=== PATIENT | female | born 1960 ===

== ENCOUNTER 2020-04-23 09:15 | Inpatient (IN) | payer OTHER ==
[~2020-04-23] VITALS: Ht 167.6 cm; Wt 102.1 kg
[2020-04-23] MEDS ORDERED: HUMIRA PEN40 MG/0.2 (11:19)
[2020-04-23] MEDS ORDERED: METFORMIN HCL500 M2 PO (11:19)
[2020-04-23] MEDS ORDERED: COZAAR50 MG PO (11:20)
[2020-04-23] MEDS ORDERED: SYNTHROID50 MCG PO (11:20)
[2020-04-23] MEDS ORDERED: GABAPENTIN300 M2 PO (11:20)
[2020-04-23] MEDS ORDERED: NABUMETONE750 MG PO (11:22)
[2020-04-23] MEDS ORDERED: XALATAN OP (11:24)
[2020-04-30] MEDS ORDERED: LATANOPROST2.5 ML (07:52)
[2020-05-03] MEDS ORDERED: XARELTO10 MG PO (07:42)
[2020-05-03] MEDS ORDERED: INTEGRA PLUS C1 EACH PO (07:42)
[2020-05-03] MEDS ORDERED: OXYC1TAB9 PO (07:42)
== END 2020-05-03 13:44 | DRG 470 ==
LOC: O/R 04-30 04:50 → SURH 04-30 04:50
PROVIDERS: ADMIT Orthopaedic Surgery Sports Medicine; ATTEND Orthopaedic Surgery Sports Medicine
PROC: 0SRC0J9 Replacement of Right Knee Joint with Synthetic Substitute, Cemented, Open Approach (ICD-10-PCS; principal; 2020-04-30 11:30)
DX: M17.11 Unilateral primary osteoarthritis, right knee (principal); Z20.828 Contact with and (suspected) exposure to other viral communicable diseases

== ENCOUNTER 2020-10-02 11:15 | Inpatient (IN) | payer OTHER ==
[~2020-10-02] VITALS: Ht 167.6 cm; Wt 102.1 kg
[~2020-10-02 11:15] MED LIST: COZAAR50 MG PO; GABAPENTIN300 M2 PO; HUMIRA PEN40 MG/0.2; INTEGRA PLUS C1 EACH PO; LATANOPROST2.5 ML; METFORMIN HCL500 M2 PO; NABUMETONE750 MG PO; OXYC1TAB9 PO; SYNTHROID50 MCG PO; XALATAN OP; XARELTO10 MG PO
[2020-10-02] MEDS ORDERED: EMBREL (16:35)
[2020-10-02] MEDS ORDERED: SULINDAC200 MG PO (16:36)
[2020-10-08] MEDS ORDERED: ENBREL50 MG/1 M1 SUBCUTANEO (14:25)
[2020-10-10] MEDS ORDERED: BACTRIM DS TAB1 EACH PO (06:26)
[2020-10-10] MEDS ORDERED: OXYC1TAB9 PO (06:26)
[2020-10-10] MEDS ORDERED: INTEGRA PLUS C1 EACH PO (06:26)
[2020-10-10] MEDS ORDERED: XARELTO10 MG PO (06:26)
== END 2020-10-10 15:02 | DRG 470 ==
LOC: EDSTATUS 11:15 → ADM 11:15 → SURH 10-08 11:15 → O/R 10-08 12:14 → SURH 10-08 12:14
PROVIDERS: ADMIT Orthopaedic Surgery Sports Medicine; ATTEND Orthopaedic Surgery Sports Medicine
PROC: 0SRD0J9 Replacement of Left Knee Joint with Synthetic Substitute, Cemented, Open Approach (ICD-10-PCS; principal; 2020-10-08 12:15)
DX: M17.12 Unilateral primary osteoarthritis, left knee (principal); I10 Essential (primary) hypertension; E13.9 Other specified diabetes mellitus without complications; Z79.84 Long term (current) use of oral hypoglycemic drugs